=== PATIENT | female | born 1940 | race Caucasian/White ===

== ENCOUNTER 2019-11-27 07:14 | Day surgery (SDC) | payer MEDICARE, BC ==
[~2019-11-27] VITALS: Ht 167.6 cm; Wt 80.9 kg
[~2019-11-27 07:14] MED LIST: BIOTIN5 MG PO; CALCIUM CITRATE1 TAB PO; CLARITIN 10 MG10 MG PO; FELDENE20 MG PO; FISH OIL 1,0001 CA1 PO; FOSAMAX35 MG PO; NEXIUM40 MG PO; NORCO 10/325 TA1 TA1 PO; NORCO 5/325 TAB1 TA1 PO; PRINIVIL20 MG PO; PROZAC20 MG PO; SYNTHROID75 MCG PO; ZOCOR80 MG PO; ZYRTEC10 MG PO
[2019-11-27 07:55] LABS: BASOPHILS 0.5 % (0-2); EOSINOPHILS 2.1 % (0-7); HEMOGLOBIN 12.8 g/dL (12-16); IMMATURE GRANULOCYTES 0.5 % (0-5); LYMPHOCYTES 26.4 % (15-50); MCH 33.7 pg (26.0-34.0); MCHC 33.7 g/dL (31.0-37.0); MONOCYTES 9.7 % (2-11); NEUTROPHILS 60.8 % (40-80); RDW 12.4 % (11.5-14.5); WBC 6.3 10x3/uL (4.8-10.8)
[2019-11-27 07:59] LABS: ANION GAP 13.1 mmol/L (8-16); CALCIUM 9.2 mg/dL (8.5-10.1); CARBON DIOXIDE 27.5 mmol/L (21.0-32.0); CREATININE - SERUM 1.1 mg/dL (0.6-1.3); POTASSIUM - SERUM 3.6 mmol/L (3.5-5.1)
[2019-11-27 08:09] LABS: PLATELET COUNT 294 10x3/uL (130-400)
[2019-11-27 08:15] LABS: APTT 28.7 SECONDS (22.8-39.4); INR 0.97 (0.85-1.17); PROTIME 12.9 SECONDS (11.6-15.0)
[2019-11-27] MEDS ORDERED: ALENDRONATE SOD35 MG PO (08:18)
[2019-11-27] MEDS ORDERED: SYNTHROID112 MCG PO (08:19)
[2019-11-27] MEDS ORDERED: HYDROCHLOROTH12.5 M1 PO (08:19)
[2019-11-27] MEDS ORDERED: OMEPRAZOLE40 MG PO (08:19)
[2019-11-27] MEDS ORDERED: LIPITOR40 MG PO (08:20)
[2019-11-27] MEDS ORDERED: PLAVIX75 MG PO (08:21)
[2019-11-27] MEDS ORDERED: DIOVAN80 MG PO (08:21)
[2019-11-27 08:33] VITALS: BP 136/71; Ht 167.6 cm; Wt 80.9 kg
--- NOTE | 2019-11-27 13:26 | NUR ---
RECEIVED CALL FROM [facility]PS NURSE REGARDING THE PATIENT'S SBP BEING LOW. SPOKE WITH DR. FRANCISCO AND WAS ASKED TO GO EVALUATE THE PATIENT AND BIOPSY SITE. UPON ENTERING THE PATIENT'S ROOM THE PATIENT WAS TALKING WITH HER AND WAS IN GOOD SPIRITS. SBP WAS 97 AT THAT TIME. THE BIOPSY SITE WAS SOFT WITH NO EVIDENCE OF A HEMATOMA PRESENT. ORTHOSTATIC BLOOD PRESSURES WERE OBTAINED AND WERE FOLLOWS: SITTING UP SBP = 124; STANDING SBP = 104. THE PATIENT STATED THAT SOMETIMES SHE HAS LOW BLOOD PRESSURE AT THE DOCTOR'S OFFICE AND THEY HAVE GIVEN HER FLUID BOLUSES IN THE PAST. SHE DENIED DIZZINESS, LIGHT HEADEDNESS, OR FEELING OFF BALANCE WHILE IN THE SITTING AND STANDING POSITIONS. PLAN TO DISCHARGE HER PER ORIGINAL PLAN.
--- NOTE | 2019-11-27 13:44 | NUR ---
1320 REBECCCA FROM IR AT BEDSIDE. POSTURAL VS TAKEN. PT IS ASYMTOMTC WITH SBP ABOVE 100. SAT 96 WITH AUDIBLE EXP WHEEZES, NOT NEW. PT DENIES C/O. IV D/C'D WITH CANNULA INTACT, PRESSURE HELD AND DRSG PLACED. DISCHARGE INSTRUCTIONS GIVEN AND PT VERBALIZED AN UNDERSTANDING. DRSG SITE UNCHANGED
== END 2019-11-27 13:35 | disposition home or self-care (01) ==
LOC: D.SP 07:14 → EDSTATUS 10:00 → D.CT 10:00 → D.SP 13:35
PROVIDERS: Radiology Vascular & Interventional Radiology; ATTEND Internal Medicine Medical Oncology
DX: C34.31 Malignant neoplasm of lower lobe, right bronchus or lung (principal); C79.51 Secondary malignant neoplasm of bone; I10 Essential (primary) hypertension; I25.10 Atherosclerotic heart disease of native coronary artery without angina pectoris